=== PATIENT | female | born 1985 | race Caucasian/White ===

== ENCOUNTER 2025-03-28 14:42 | Emergency (ER) | payer MEDICAID, SELFPAY ==
--- OUTSIDE RECORDS SUMMARY | 2017-02-28 09:45 | XMS_ITS | Continuity of Care Document ---
[place] [facility] [place] [address] [place] [phone] Phone Care Team Providers Care Strategic Analyst Name Role Phone Darin Bailey MD Unavailable Unavailable Allergies, Adverse Reactions, Alerts Substance Reaction Status Criticality No Known Allergies Active No Inform ation Medications Medication Instructions Dosage Effective Dates (start - stop) Status Comments clindamycin 150 mg capsule take 2 capsule by oral route every 8 hours 300 MG - Active Rx'd by [facility] upon d/c on 02/15 -Pt should have completed course by time of appt on 02/28 Latasha-D 12 Hour 60 mg-120 mg tablet,extended release take 1 tablet by oral route as needed - Active Procedures Procedure Date Offic/outpt E&m [facility] TRANS CARE MGMT 14 DAY DISCH Advance Directives Directive Yes / No Effective Date File Name No Information Encounters Encounter Description Practice Location Reason(s) For Visit Diagnoses Date Provider Offic/outpt E&m [facility] [place], [address] [place] [address], [id number], [place] tel:[phone] [facility] hosp f/u (chief complaint)Eye problems (chief complaint) Cellulitis of other sites Lynn Webster. [address] [place] [address], [address], . tel:[phone] [facility], [address] [place] [address], [id number], tel:[phone] [facility] No Information No Information [address], [id number], [place] tel:[phone] [facility] Eye problems (FP) (chief complaint) Other conjunctivitis Luis Eduardo Nichole. [address] [place], [address], . tel:[phone] [phone], [id number], tel:[phone] [facility] Piedad Friend. [address] [place] [address], [id number], [place]. tel:[phone], [id number], [place] tel:[phone] [facility] Sore throat (chief complaint) Acute Pharyngitis No Information [address], [id number], [place] tel:[phone] [facility] Skin lesion (chief complaint) CELLULITIS OF BUTTOCKGENITAL HERPES NOS No Information [address], [id number], [place] tel:[phone] [facility] L arm pain (chief complaint) SPRAIN SHOULDER/ARM NOS No Information [address], [id number], [place] tel:[phone] [facility] cold symptoms (chief complaint) Influenza VaccineUPPER RESP DIS NEC/NOSOTALGIA NOSALLERGY, UNSPECIFIED No Information [address], [id number], [place] tel:[phone] [facility] physical examination (chief complaint) 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 [address] [place], [address], . tel:[phone] [address], [id number], tel:[phone] [facility] FPE (chief complaint)her pes (chief complaint) GENITAL HERPES NOS No Information [facility], [address] [place] [address], [id number], tel:[phone] [facility] Herpes (chief complaint) GENITAL HERPES NOS No Information [address], [id number], tel:[phone] Acute Care Pod establish care (chief complaint)thr oat (chief complaint) Acute Pharyngitis [place]co [place]. [address] [place], [address], . tel:[phone], [id number], tel:[phone] [facility] No Information No Information Family History Family Member Type Diagnosis Age At Onset Father Problem (finding) Quadraplegic Father Problem (finding) coronary arterioscleros is Mother Problem (finding) Alive and well Immunizations Vaccine Date Status Comments Flu (split) (3 yrs or older) administered Source: New Immunization Record Payers Payer name Insurance type Covered libertarian ID Authoriza tion(s) No Information Social History Type Description Quantity Date Captured Comments Alcohol Use Details Unknown Caffeine Use Details Unknown Tobacco Use Status Smoking Status No Information Sex Female Sexual Orientation Don't Know Gender Identity Female Vital Signs Date / Time: Height Weight BMI Pulse Rate Blood Pressure Temperature Respiratory Rate Body Surface Area Head Circumference Head Circ. Percentile Wt./Dylan. Percentile BMI percentile Pulse Ox Inhaled Ox 2:03 PM 65.00 in 66.678 kg (147.00 lbs) 24.4 6 kg/m eter (2) 64 /min 110/70 mm[Hg] 99.30 F 16 /min Chief Complaint And Reason For Visit From encounter dated '02/28/2017 13:45'. hosp f/u (chief complaint). Description: Jamilah Mcintyre : 1985Admission: 02/15/17 (<24h stay)Dx: Preseptal cellulitis of left eyeInterim Hx:Pt is a 31 year old w/no significant PMH who presented to [facility] ED w/3d hx of L eye swelling/pain. Pt was seen at [facility] for same issue earlier same day and was Rx'd cephalexin and polymyxin B sulfate/trimethoprim eye gtts but after 1st dose Pt took a nap and woke up w/increased pain. Upon arrival at [facility] ED Pt was hemodynamicallystable, w/o loss of visual acuity. Pt's CT orbit showed only preseptal involvementof inflammation -Pt was started on clindamycin and admitted for observation. Pt improved overnight and was d/c'd home w/plan to complete 10 day course of clindamycin 300 mg TID. Medications: Updated and reconciledImm's: need to be updatedFollow Up:-per Hospital Notes, Pt isw/o insurance and needs to re[facility] care[facility] Eye problems (chief complaint). Description: The symptoms are persistent. Symptoms located at left upper lid. Discomfort is described as itchy and feeling swollen . Patient reports no discharge. Context additional comments: recent hospitalization. Denies aggravating factors. Associated symptoms include itching. Pertinent negatives include blurred vision, eye pain or vision loss. A dditional information: Pt finished course of antibiotics for left preseptal cellulitis 2d ago, Pt having increased swelling. Plan Of Treatment Date Type Action Status Goal Influenza virus vaccine, quadrivalent, split virus, preservative free, when administered to individu. Due on due Goal Influenza virus vaccine,trivalent, split virus, for use in individuals 3 years of age and above,. Due on due Goal Annual PE. Due on 7 due Goal Chlamydia/GC Amp lification. Due on due Goal ThinPrep Pap w/ HPV. Due on due Goal Tetanus/diphth T ox-adult-im/je. Due on due Goal HIV-1 AG W/HIV-1 & HIV-2 AB. Due on due Goal Pap w/ HPV. Due on 17 due Goal ThinPrep Pap w/ HPV. Due on due Goal Influenza virus vaccine,trivalent, split virus, for use in individuals 3 years of age and above,. Due on due Goal Pap w/ HPV. Due on 17 due Goal Annual PE. Due on 7 due Goal Influenza virus vaccine, quadrivalent, split virus, preservative free, when administered to individu. Due on due Goal Chlamydia/GC Amp lification. Due on due Goal Tetanus/diphth T ox-adult-im/je. Due on due Goal HIV-1 AG W/HIV-1 & HIV-2 AB. Due on due Goal Influenza vaccine. Due on due Goal Td vaccine. Due on 14 due Goal H&P. Due on due Goal Tdap. Due on due Goal Breast exam. Due on 014 due Goal Tdap. Due on due Goal H&P. Due on due Goal Td vaccine. Due on 13 due Goal Breast exam. Due on 012 due Future Order: Lab Order Susan lord ([id number]), Sent on: Sent History Of Present Illness Encounter Date Complaint History Of Prese nt Illness hosp f/u Jamilah Mcintyre : 1985Admission: 02/15/17 (<24h stay)Dx: Preseptal cellulitis of left eyeInterim Hx:Pt is a 31 year old w/no significant PMH who presented to [facility] w/3d hx of L eye swelling/pain. Pt was seen at [facility] for same issue earlier same day and was Rx'd cephalexin and polymyxin B sulfate/trimethoprim eye gtts but after 1st dose Pt took a nap and woke up w/increased pain. Upon arrival at [facility] Pt was hemodynamically stable, w/o loss of visual acuity. Pt's CT orbit showed only preseptal involvement of inflammation -Pt was started on clindamycin and admitted for observation. Pt improved overnight and was d/c'd home w/plan to complete 10 day course of clindamycin 300 mg TID. Medications: Updated and reconciledImm's: need to be updatedFollow Up:-per Hospital Notes, Pt is w/o insurance and needs to [facility] Eye problems The symptoms are persistent. Symptoms located at left upper lid. Discomfort is described as itchy and feeling swollen . Patient reports no discharge. Context additional comments: recent hospitalization. Denies aggravating factors. Associated symptoms include itching. Pertinent negatives include blurred vision, eye pain or vision loss. Additional information: Pt finished course of antibiotics for left preseptal cellulitis 2d ago, Pt having increased swelling. Eye problems (FP) Onset: 2 Days. Symptoms located at left upper lid. Discomfort is described as dull pain. Symptoms are associated with contact lens use. Symptoms are not associated with exposure to pink eye, sick contact at home or sick contact at work. Symptoms are not aggravated by chemicals, eye motion or light. Symptoms are relieved by contact lens removal. Associated symptoms include left eye pain. Pertinent negatives include blurred vision, cough, ear pain, eye(s) crusted shut in AM, itching, nasal congestion, rhinorrhea, sore throat, tearing, vision loss or white discharge. Additional information: Since swelling started pt took out contacts and has been wearing her glasses. Sore throat Onset: 1 Week. T he severity of the problem is mild. The problem has not changed. The symptoms are persistent. The patient denies aggravating factors. The patient denies relieving factors. Associated symptoms include pharyngitis and swelling. Pertinent negatives include chills/rigors, cough, fever, nasal congestion or sinus pressure. Additional information: Pt states the discomfort is mild, but the swelling in the back of her throat is making it hard to breath. Instructions Date Instruction Additional Infor mation f/u as needed for re dness or swelling Related to Cellulitis of other sites Cephalexin 500 mg th ree times daily for 7 daysPolytrim ophthalmic drops can also be used three to 4 times daily for the left eye.Pt aware should not resume contact lens wear until she is back to normal without redness or pain. If not improving needs ophthalmology evaluation. Related to Other conjunctivitis Assessments Type Assessment Date assessment Cellulitis of other sites impression preseptal cellulitis improved ab x 10d finished Mental Status Date Cognitive Assessment Orientation - [place] ed to time, place, person, situation.
[2025-03-28 14:49] VITALS: BP 122/74; PULSE 78; RESP 16; TEMP 36.4; O2SAT 99; BMI 33.0
--- NOTE | 2025-03-28 14:52 | ED_ITS ---
HPI - General Adult General Chief complaint: Eye Problems Stated complaint: L eye irritation Time Seen by Provider: 03/28/25 14:52 Source: patient Mode of arrival: ambulatory Limitations: no limitations History of Present Illness ED Provider: Wade Elliott [facility] narrative: 39-year-old female with history of periorbital cellulitis presents to ED for left upper eyelid swelling and redness with slight tenderness since this morning. Patient denies any eye pain, change in vision, blurry vision, any recent trauma to the eye. Patient denies any headache, fever or chills. Patient denies sleeping with contacts. Related Data Previous Rx's ?Medication ?Instructions ?Recorded amoxicillin 875 mg-potassium 1 tab PO Q12H 10 days #20 tabs 03/28/25 clavulanate 125 mg tablet Allergies Allergy/AdvReac Type Severity Reaction Status Date / Time No Known Allergies Allergy Verified 03/28/25 14:51 Review of Systems 2 Review of Systems: left eye uppereyelid swelling Yes all other systems are reviewed and are [facility] Social History Social History Advance Directives: No Advance Directives Information Provided: No Do you have a plan to hurt others: No Plan Physical Exam ED Vital Signs: Vital Signs - 24 hr 03/28/25 14:49 03/28/25 15:29 Temperature 97.6 F 97.6 F Pulse Rate 78 78 Respiratory Rate 16 16 Blood Pressure 122/74 122/74 Pulse Oximetry 99 99 Oxygen Delivery Method Room Air Room Air BMI result Body Mass Index 33.0 Const General: cooperative, healthy appearing, comfortable, no acute distress, well developed, alert, awake and Physically active Orientation/consciousness: patient oriented x3 HENMT Head: Yes normal to inspection, Yes No palpable skull fracture present, Yes normocephalic and Yes atraumatic Ears: hearing grossly normal bilaterally, external ears normal, TM's normal bilaterally, TM normal on the right, TM normal on the left, EAC's normal, mastoids normal and no periauricular adenopathy Throat: Yes posterior oropharynx normal, Yes tonsils normal and Yes uvula midline Eyes General: appearance normal, both eyes and all related structures Eyes/upper lids images: 2 1. Positive for upper eyelid swelling with redness. Negative for any stye or chalazion. Negative for pus discharge or foul odor. Conjunctiva is normal. Negative for photophobia. Negative for signs of corneal abrasion, glaucoma, corneal ulcer, herpes zoster, or globe rupture. Negative hyphema Neck Neck: Yes normal visual inspection, Yes full ROM, Yes no lymphadenopathy, Yes no meningeal signs, Yes trachea midline, Yes supple, No anterior neck swelling and No tender Chest Chest palpation & inspection: normal inspection of the chest and normal palpation of entire chest wall Resp Effort & Inspection: normal respiratory effort and able to speak in complete sentences Auscultation: clear to auscultation bilaterally Cardio Jugular venous distension: no JVD Heart sounds: S1 normal heart sound present and S2 normal heart sound present GI Inspection: Yes normal to inspection Palpation (GI): Soft to palpation, not firm, nontender, no guarding and not rigid General: Yes no CVA tenderness Back/Spine/Pelvis Back: no CVA tenderness and No back tenderness Skin General skin exam: no rashes or lesions noted, elasticity normal and turgor normal Neuro General: patient oriented x3, gait normal, tone normal, moves all extremities, Normal light touch and pain sensation, no meningeal signs, no focal motor deficits, CN's II-XI intact bilaterally and normal sensation to monofilament Extrem General: Yes normal to inspection, Yes full ROM and Yes capillary refill normal Psych Appearance: grossly normal, well kempt and not disheveled Medical Decision Making Medical Decision Making MDM Narrative: 39-year-old female presents to ED for left eye irritation. Physical exam indicate periorbital cellulitis. Not suspecting corneal abrasion corneal ulcer, conjunctivitis, glaucoma, globe rupture, hyphema, iritis, or herpes zoster. Patient explained worrisome signs and informed to return to the ED immediately. Patient will be discharged with antibiotics. Visual acuity intact. Differential Diagnosis Differential Diagnoses: The differential diagnosis associated with the presentation includes (Conjunctivitis, periorbital cellulitis, stye, chalazion) Admission/Observation Consideration of admission/observation: Escalation of care including admission/observation considered Independent Historian Clinical information obtained from an independent historian. History obtained from or confirmed by: Other (Patient) Prescription Management I considered prescription management with: Antibiotic Discharge Plan Discharge Clinical Impression: Periorbital cellulitis Patient Disposition: Home, Self-Care Instructions: Periorbital Cellulitis (ED) Additional Instructions: Return to the ED immediately for any loss of vision, change in vision, increased swelling, pain, headache, dizziness, pus discharge, drainage, fever, chills, or any other concerning symptoms. Recommend follow up with PCP. Recommend warm compress on left eyelid 4 times a day for 15 minutes Prescriptions: New amoxicillin-pot clavulanate 875-125 mg tablet 1 tab PO Q12H 10 Days Qty: 20 0RF Referrals: Isa Rivera ANP [Primary Care Provider, Medical] - 1 day Referral Note: Left periorbital cellulitis Clinical Impression: Periorbital cellulitis Qasim Bowman [Physician, Ophthalmology] - 1 day Referral Note: Periorbital cellulitis Clinical Impression: Periorbital cellulitis Stand Alone Forms: Work/School Release Interventions: ED Discharge Assessment Last Done: 03/28/25 15:29 Discharge Date/Time: 03/28/25 15:30 Print Language: Yemeni
--- OUTSIDE RECORDS SUMMARY | 2025-03-28 15:14 | XMS_ITS | Data Portability ---
Author Organization [facility] [employer], [place] Address [address] [place] [address] Assessment Encounter Date Assessment Date Assessment LastModified by Organization Details LastModified Time 12/08/2021 12/08/2021 Lab Results > Last UDS Result (Qual Screen): NO illicit drugs > Last Confirmatory Test Result (LCMS/Quant): N/A due to Negative UDS > Last LFT Result on needs labs Since Last Visit THIS PT IS BEING TREATED FOR OUD WITH NALTREXONE AND IS SEEN WEEKLY. > Bio/psycho/social Update: Jamilah is here for AUD follow up for vivitrol injection. She established care for continuation of vivitrol inj. which was started in rehab on 11/27/21. She denies cravings. She has returned to AA meetings and is interested in attending the MAT friendly meeting starting [facility]. She has a good support system through AA and family/friends. She feels that the recovery program was very helpful for her and she is motivated to continue with recovery and return to work once her hip is better. This continues to be bothersome but is 85% better. She will try to continue exercise/yoga and is planning on going back to PT. she will request another referral from PCP at today's visit. She does not feel that pain has been a trigger for her ETOH use. She sees a counselor weekly and plans to continue this. Fluoxetine has been more helpful for depressions so far than citalopram. Assessment The patient's current phase of treatment is Induction phase, AUD. > 1) Interpretation of Confirmatory (LCMS) Test Result: N/A due to NEG UDS > 2) Markers of Recovery include: AA MEETINGS, COUNSELING, KEEPING APPTS. > 3) Counseling: Engaged in Counseling The patient does meet diagnostic criteria for alcohol dependence. The patient does continue to be a good candidate for this level of care. LFT will be repeated per our clinical protocol. Urine drug testing is ordered today with medical necessity as below. Naltrexone A/P Discussed the risk of using opioid and alcohol while on naltrexone. The patient is counseled re: short-term goal of harm reduction and the long-term goal of abstinence. Oral naltrexone challenge is not performed today. If chall enged, pt took own med with and after observed for minutes there evidence of precipitated withdrawal. The patient the oral naltrexone challenge. Plan The patient is advised to continue to abstain from alcohol and continue oral naltrexone AND return for Vivitrol injection. The patient is advised to engage in substance abuse counseling and provide verification each visit. Patient's visit frequency should be weekly. Frequency of UDS and confirmatory test, if applicable, should be weekly. Treatment plan review or change includes . Referrals made today include none. Prescription monitoring program is reviewed. If reviewed, I have identified agents prescribed to the patient in addition to any issued by our program; the patient is counseled regarding any risk of combining sedating agents. [email or web address] Not available 12/08/2021 15:03:03 12/17/2021 12/17/2021 This patient with a history of OUD presents today for their weekly MAT visit Current prescription is: Vivitrol 380mg Inj q 4 weeks Patient denies any S/E or cravings Update Since Last Visit : (narrative note) Jamilah is here for AUD follow up for vivitrol injection. She established care for continuation of vivitrol inj. which was started in rehab on 11/27/21. She denies cravings. She has returned to AA meetings and is interested in attending the MAT friendly meeting starting [facility]. She has a good support system through AA and family/friends. She feels that the recovery program was very helpful for her and she is motivated to continue with recovery and return to work once her hip is better. This continues to be bothersome but is 85% better. She will try to continue exercise/yoga and is planning on going back to PT. she will request another referral from PCP at today's visit. She does not feel that pain has been a trigger for her ETOH use. She sees a counselor weekly and plans to continue this. Fluoxetine has been more helpful for depressions so far than citalopram. However, she plans on discussing with PCP to see if this can be increased. She has very low energy and doesn't feel motivated at all. LAB RESULTS Last UDS result (qualitative screen): NEG EtOH, NEG all illicit substances Last confirmatory test result (LCMS/quantitative ): N/A due to negative UDS Last LFT result: Overdue for lab work--New lab req given ASSESSMENT The patient's current phase of OUD treatment is: Stabilization phase. Medication dose: No report of severe or persistent cravings. Pt will remain on current dose/medication PLAN (narrative, if applicable) Rx : Continue Vivitrol 380mg inj q 4 weeks Rx Quantity No Rx provided today. VISIT FREQUENCY Continue weekly visits and UDS. LAB ORDERS: Urine drug testing is ordered today with medical necessity as below. Confirmatory testing may be indicated for illicit substances. UNEXPECTED results on UDS (presumptive testing) may impact this patient's treatment plan. Therefore, the following tests require confirmation via LCMS: If POS for AMPHETAMINE : Perform Conf Testing If POS for BENZODIAZEPINES : Perform Conf Testing If POS for COCAINE : Perform Conf Testing If POS for METHADONE : Perform Conf Testing If POS for OPIATES (incl FENTANYL) : Perform Conf Testing If POS for OXYCODONE : Perform Conf Testing ADDITIONAL LAB(S) REQUESTED : If indicated, please perform the following: NONE LFTS will be repeated per our clinical protocol. Prescription monitoring program is reviewed. If applicable, I have identified agents prescribed to the patient in addition to any issued by our program. The patient has been counseled regarding any risk of combining sedating agents. [email or web address] Not available 12/17/2021 16:03:34 12/24/2021 12/24/2021 Lab Results > Last UDS Result (Qual Screen): POS for the following illicit drugs or EtOH: cocaine > Last Confirmatory Test Result (LCMS/Quant): N/A due to Negative UDS > Last LFT Result on waiting for labs to be sent from [facility] [place] Since Last Visit THIS PT IS BEING TREATED FOR OUD WITH VIVITROL AND IS SEEN WEEKLY. > Bio/psycho/social Update: Jamilah is here for AUD follow up and for her 2nd vivitrol injection. She established care for continuation of vivitrol inj. which was started in rehab on 11/27/21. She denies cravings. She has returned to AA meetings and is interested in attending the MAT friendly meeting starting [facility]. She has a good support system through AA and family/friends. She feels that the recovery program was very helpful for her and she is motivated to continue with recovery and return to work once her hip is better. This continues to be bothersome but is 85% better. She will try to continue exercise/yoga and is planning on going back to PT. she will request another referral from PCP at today's visit. She does not feel that pain has been a trigger for her ETOH use. Last UDS pos for cocaine. She admits to trying it before her last visit. She initially said that was the only time and she doesn't know why she did it. But then she admitted to also doing a small amount over the weekend. Discussed dangers of cocaine including cardiac arrest and the dangers of fentanyl which is commonly being mixed with cocaine. She says she does not plan on continuing this. She sees a counselor weekly and plans to continue. Fluoxetine has been more helpful for depressions so far than citalopram. However, she plans on discussing with PCP to see if this can be increased. She has very low energy and doesn't feel motivated at all. Assessment The patient's current phase of treatment is Stabilization phase, OUD. > 1) In terpretation of Confirmatory (LCMS) Test Result: N/A due to NEG UDS > 2) Markers of Recovery include: meetings, > 3) Counseling: Engaged in Counseling The patient does meet diagnostic criteria for alcohol dependence. The patient is responding to treatment with Vivitrol at OBOT level of care at this phase of treatment. The patient does continue to be a good candidate for this level of care. LFT will be repeated per our clinical protocol. Urine drug testing is ordered today with medical necessity as below. Vivitrol A/P Discussed the risk of using opioid and alcohol while on naltrexone. The patient is counseled re: short-term goal of harm reduction and the long-term goal of abstinence. The patient did receive injection today. > Vivitrol 380mg injection administered intramuscularly to left gluteal. > Lot # [id number], Exp. Date: 04/26/2024 > Diluent Lot #[id number], Exp. Date: 07/27/2024 Patient did tolerate injection well. If not tolerated: N/A. Next Vivitrol injection is due on 01/21/2022. Plan The patient is advised to continue to abstain from alcohol and continue current Vivitrol regimen. The patient is advised to engage in substance abuse counseling and provide verification each visit. Patient's visit frequency should be weekly. Frequency of UDS and confirmatory test, if applicable, should be weekly. Treatment plan review or change includes continue current level of care. Referrals made today include none. Prescription monitoring program is reviewed. If reviewed, I have identified agents prescribed to the patient in addition to any issued by our program; the patient is counseled regarding any risk of combining sedating agents. [email or web address] Not available 12/24/2021 13:23:25 12/31/2021 12/31/2021 This patient with a history of OUD presents today for their weekly MAT visit Current prescription is: Vivitrol 380mg Inj q 4 weeks Patient denies any S/E or cravings Update Since Last Visit : (narrative note) Jamilah is here for AUD follow up for vivitrol injection. She established care for continuation of vivitrol inj. which was started in rehab. She had her second vivitrol inj on 12/24/21. She called the office the other day for report of injection site redness, warmth, and firmness. She was instructed to use triple antibiotic cream and edd redness and go to ER if worsened/redness spread beyond marked areas. Today on inspection the area is without redness, warmth, swelling or drainage. Needle edd noted with a small area of firmness around site. She reports that it is much better. She denies cravings. She has returned to AA meetings and is interested in attending the MAT friendly meeting starting [facility]. She has a good support system through AA and family/friends. She feels that the recovery program was very helpful for her and she is motivated to continue with recovery and return to work once her hip is better. This continues to be bothersome but is 85% better. She will try to continue exercise/yoga and is planning on going back to PT. she will request another referral from PCP at today's visit. She does not feel that pain has been a trigger for her ETOH use. She did have one time this past week that she had a random craving but she was able to work through it. Will rx more naltrexone po to have on hand. She says she did not get her first RX She sees a counselor weekly and plans to continue this. Fluoxetine has been more helpful for depressions so far than citalopram. However, she plans on discussing with PCP to see if this can be increased. She has very low energy and doesn't feel motivated at all. She denies cocaine or other illicit substance use since last visit. LAB RESULTS Last UDS result (qualitative screen): POS for the following: COCAINE Last confirmatory test result (LCMS/quantitative ): N/A due to negative UDS Last LFT result: Overdue for lab work--New lab req given ASSESSMENT The patient's current phase of OUD treatment is: Stabilization phase. Medication dose: No report of severe or persistent cravings. Pt will remain on current dose/medication PLAN (narrative, if applicable) Rx : Continue Vivitrol 380mg inj q 4 weeks Rx Quantity No Rx provided today. VISIT FREQUENCY Continue weekly visits and UDS. LAB ORDERS: Urine drug testing is ordered today with medical necessity as below. Confirmatory testing may be indicated for illicit substances. UNEXPECTED results on UDS (presumptive testing) may impact this patient's treatment plan. Therefore, the following tests require confirmation via LCMS: If POS for AMPHETAMINE : Perform Conf Testing If POS for BENZODIAZEPINES : Perform Conf Testing If POS for COCAINE : Perform Conf Testing If POS for METHADONE : Perform Conf Testing If POS for OPIATES (incl FENTANYL) : Perform Conf Testing If POS for OXYCODONE : Perform Conf Testing ADDITIONAL LAB(S) REQUESTED : If indicated, please perform the following: NONE LFTS will be repeated per our clinical protocol. Prescription monitoring program is reviewed. If applicable, I have identified agents prescribed to the patient in addition to any issued by our program. The patient has been counseled regarding any risk of combining sedating agents. Not available 12/31/2021 11:41:11 01/07/2022 01/07/2022 This patient wit h a history of OUD presents today for their weekly MAT visit Current prescription is: Vivitrol 380mg Inj q 4 weeks Patient denies any S/E or cravings Update Since Last Visit : (narrative note) Patient Denies all illicit drug use since last visit Jamilah is here for AUD follow up for vivitrol injection. She established care for continuation of vivitrol inj. which was started in rehab. She had her second vivitrol inj on 12/24/21. She called the office to report of injection site redness, warmth, and firmness. She was instructed to use triple antibiotic cream and edd redness and go to ER if worsened/redness spread beyond marked areas. It was evaluated in office a few days later and was without redness, warmth, swelling or drainage. Needle edd noted with a small area of firmness around site. She reports that it is much better, just some itchiness at the site. She denies cravings. She has returned to AA meetings and is interested in attending the MAT friendly meeting starting [facility]. She has a good support system through AA and family/friends. She feels that the recovery program was very helpful for her and she is motivated to continue with recovery and return to work once her hip is better. This continues to be bothersome but is 85% better. She will try to continue exercise/yoga and is planning on going back to PT. she will request another referral from PCP at today's visit. She does not feel that pain has been a trigger for her ETOH use. She did have one time this past week that she had a random craving but she was able to work through it. Will rx more naltrexone po to have on hand. She says she did not get her first RX She sees a counselor weekly and plans to continue this. HAS BEEN GOING TO PT FOR RIGHT HIP - NO IMPROVEMENT. PCP WILL BE ORDERING MRI Fluoxetine has been more helpful for depressions so far than citalopram. However, she plans on discussing with PCP to see if this can be increased. She has very low energy and doesn't feel motivated at all. She denies cocaine or other illicit substance use since last visit. LAB RESULTS Last UDS result (qualitative screen): POS for the following: COCAINE, THC Last confirmatory test result (LCMS/quantitative ): Quantitative levels of: BENZOYLECGONINE Last LFT result: WNL ASSESSMENT The patient's current phase of OUD treatment is: Stabilization phase. Medication dose: No report of severe or persistent cravings. Pt will remain on current dose/medication PLAN (narrative, if applicable) Rx : Continue oral naltrexone 50mg daily Rx Quantity No Rx provided today. VISIT FREQUENCY Continue weekly visits and UDS. UNEXPECTED results on UDS may impact this patient's treatment plan. The following information will be used to place the proper confirmation orders for the specimen collected for this date 01/07/2022 . Perform Confirmation if Positive Amphetamines Perform Confirmation if Positive Benzodiazepines Perform Confirmation if Positive Cocaine Perform Confirmation if Positive Methadone Perform Confirmation if Positive Opiates and/or Fentanyl Perform Confirmation if Positive Oxycodone Additional requests in regards to confirmation orders. NONE LFTS will be repeated per our clinical protocol. Prescription monitoring program is reviewed. If applicable, I have identified agents prescribed to the patient in addition to any issued by our program. The patient has been counseled regarding any risk of combining sedating agents. [email or web address] Not available 01/21/2022 10:03:02 Plan of Treatment Reminders Order Date Submit Date Provider Last Modified By Organization Details Last Modified Time Details Appointments None recorded. Lab drug screen, urine 2021 022 [facility], [address] [place], [id number], 2 13:20:06 drug screen, urine 2021 022 [facility], [address] [place], [address], 2 12:32:35 test, urine 2021 022 [facility] [address], [address], 2 11:56:52 test, urine 2021 022 [facility] [address], [address], 2 11:37:40 drug screen, urine 2021 022 [facility], [address] [place], [address], 2 07:10:25 drug screen, urine [address], [address] [place], [address], 2 12:06:15 drug screen, urine 2021 [facility], [address] [place], [address], 11:11:20 drug screen, urine 2021 [facility], [address] [place], [address], 13:32:05 Referral None recorded. Procedures None recorded. Surgeries None recorded. Imaging None recorded. Medication [facility] mg tablet [id number] [address] [facility], [place], [address], 11:36:20 Patient TargetsNo targets recorded. Patient Instructions Encounter Date Encounter Id Patient Instructions Last Modified By Organization Details Last Modified Time 12/24/2021 [id number] Education provid ed at today's visit included: Review of patient's individualized treatment plan; Review of Specialty pharmacy procedures; Review of program policies: urine screening, medication, visit, counseling requirement; Discussed importance of avoiding opioid and alcohol while on Vivitrol Treatment; discussed Vivitrola??s common and serious side effects; Counseled regarding risk of if overdosed with alcohol or opioid while on Vivitrol treatment; Counseling re: trigger avoidance, relapse prevention and the importance of developing a sober network; Counseling re safe sex and control; Counseling re: Discovery & Drop-out prevention in early recovery. Greater than 50% of today's visit spent face to face counseling and coordinating care. [email or web address] Not available 12/24/2021 11:08:17 Reason for Referral None Reported. Results Created Date Observation Date Name Description Value Unit Range Abnormal Flag Note LastModifiedBy Organization Detail LastModifiedTime 12/02/1912/01/2021 [facility] amphetamines Negati ve NG/mL 1,000 Tru weiner by JUSTINO CASEY Not Available [place], [address], 12/02/2021 13:50:06 12/02/19 22 12/01/2021 INITI AL PT S[facility]N benzodiazapi kira Negati ve NG/mL 200 Not Available [facility] [place], [address], 12/02/2021 13:50:06 12/02/19 22 12/01/2021 INITI AL PT SCRN buprenorphin e Negati ve NG/mL 5 abnormal Not Available [place] [address] [place], [address], 12/02/2021 13:50:06 12/02/19 22 12/01/2021 INITI AL PT SCRN cocaine metabolite Negati ve NG/mL 150 Not Available [place] [address] [place], [address], 12/02/2021 13:50:06 12/02/19 22 12/01/2021 INITI AL PT S[facility]N opiates Negati ve NG/mL 300 Not Available [place] [address] [place], [address], 12/02/2021 13:50:06 12/02/19 22 12/01/2021 INITI AL PT SCRN oxycodone Negati ve NG/mL 300 Not Available [place] [address] [place], [address], 12/02/2021 13:50:06 12/02/19 22 12/01/2021 INITI AL PT SCRN fentanyl Negati ve NG/mL 2 Not Available [place] [address] [place], [address], 12/02/2021 13:50:06 12/02/19 22 12/01/2021 INITI AL PT SCRN ethyl alcohol Negati ve mg/dL 10 Not Available [place] [address] [place], [address], 12/02/2021 13:50:06 12/02/19 22 12/01/2021 INITI AL PT SCRN methadone metabolite Negati ve NG/mL 300 Not Available [facility] [place], [address], 12/02/2021 13:50:06 12/02/19 22 12/01/2021 INITI AL PT SCRN cannabinoids (THC) Negati ve NG/mL 50 Not Available [facility] [address] [place], [address], 12/02/2021 13:50:06 12/02/19 22 12/01/2021 INITI AL PT SCRN urine creatinine 127.5 mg/dL >20 Not Available [place] [address] [place], [address], 12/02/2021 13:50:06 12/02/19 22 12/01/2021 INITI AL PT SCRN urine pH 6.20 4.5-9. 0 Not Available [place] [address] [place], [address], 12/02/2021 13:50:06 12/02/19 22 12/01/2021 INITI AL PT SCRN specific gravity 1.019 1.003- 1.035 Not Available [place] [address] [place], [address], 12/02/2021 13:50:06 12/04/19 22 12/03/2021 pregn lian test, urine HCG negati ve Not Available [facility] [address] [place] [address], [phone], 11/30/2021 15:46:36 12/09/19 22 12/08/2021 NALTR EXONE PT SCREE RADU amphetamines Negati ve NG/mL 1,000 Tru weiner by JUSTNIO CASEY Not Available [place] [address] [address] [place], [address], 12/09/2021 13:32:05 12/09/19 22 12/08/2021 NALTR EXONE PT SCREE RADU benzodiazapi kira Negati ve NG/mL 200 Not Available [facility] [place], [address], 12/09/2021 13:32:05 12/09/19 22 12/08/2021 NALTR EXONE PT SCREE RADU cocaine metabolite Negati ve NG/mL 150 Not Available [facility] [place], [address], 12/09/2021 13:32:05 12/09/19 22 12/08/2021 NALTR EXONE PT SCREE RADU opiates Negati ve NG/mL 300 Not Available [facility] [place], [address], 12/09/2021 13:32:05 12/09/19 22 12/08/2021 NALTR EXONE PT SCREE RADU oxycodone Negati ve NG/mL 300 Not Available [facility] [place], [address], 12/09/2021 13:32:05 12/09/19 22 12/08/2021 NALTR EXONE PT SCREE RADU fentanyl Negati ve NG/mL 2 Not Available [facility] [place], [address], 12/09/2021 13:32:05 12/09/19 22 12/08/2021 NALTR EXONE PT SCREE RADU ethyl alcohol Negati ve mg/dL 10 Not Available [facility] [place], [address], 12/09/2021 13:32:05 12/09/19 22 12/08/2021 NALTR EXONE PT SCREE RADU methadone metabolite Negati ve NG/mL 300 Not Available [facility] [place], [address], 12/09/2021 13:32:05 12/09/19 22 12/08/2021 NALTR EXONE PT SCREE RADU cannabinoids (THC) Positi ve NG/mL 50 abnormal Not Available [facility] [place], [address], 12/09/2021 13:32:05 12/09/19 22 12/08/2021 NALTR EXONE PT SCREE RADU urine creatinine 186.3 mg/dL >20 Not Available [place] [address] [place], [address], 12/09/2021 13:32:05 12/09/19 22 12/08/2021 NALTR EXONE PT SCREE RADU urine pH 7.40 4.5-9. 0 Not Available [place] [address] [place], [address], 12/09/2021 13:32:05 12/09/19 22 12/08/2021 NALTR EXONE PT SCREE RADU specific gravity 1.024 1.003- 1.035 Not Available [place] [address] [place], [address], 12/09/2021 13:32:05 12/18/19 22 12/17/2021 BUPRE NORPH INE PT SCREE RADU amphetamines Negati ve NG/mL 1,000 Elect alena fletcher d by JUSTINO CASEY Not Available [place] [address] [place], [address], 12/18/2021 11:11:19 12/18/19 22 12/17/2021 BUPRE NORPH INE PT SCREE RADU benzodiazapi kira Negati ve NG/mL 200 Not Available [facility] [place], [address], 12/18/2021 11:11:19 12/18/19 22 12/17/2021 BUPRE NORPH INE PT SCREE RADU buprenorphin e Negati ve NG/mL 5 abnormal Not Available [facility] [place], [address], 12/18/2021 11:11:19 12/18/19 22 12/17/2021 BUPRE NORPH INE PT SCREE RADU cocaine metabolite Positi ve NG/mL 150 abnormal Not Available [facility] [place], [address], 12/18/2021 11:11:19 12/18/19 22 12/17/2021 BUPRE [facility] opiates Negati ve NG/mL 300 Not Available [facility] [place], [address], 12/18/2021 11:11:19 12/18/19 22 12/17/2021 [facility] oxycodone Negati ve NG/mL 300 Not Available [facility] [place], [address], 12/18/2021 11:11:19 12/18/19 22 12/17/2021 BUPRE [facility] fentanyl Negati ve NG/mL 2 Not Available [facility] [place], [address], 12/18/2021 11:11:19 12/18/19 22 12/17/2021 BUPRE [facility] ethyl alcohol Negati ve mg/dL 10 Not Available [facility] [place], [address], 12/18/2021 11:11:19 12/18/19 22 12/17/2021 BUPRE [facility] methadone metabolite Negati ve NG/mL 300 Not Available [facility] [place], [address], 12/18/2021 11:11:19 12/18/19 22 12/17/2021 BUPRE [facility] cannabinoids (THC) Positi ve NG/mL 50 abnormal Not Available [facility] [place], [address], 12/18/2021 11:11:19 12/18/19 22 12/17/2021 BUPRE [facility] urine creatinine 136.6 mg/dL >20 Not Available [place] [address] [place], [address], 12/18/2021 11:11:19 12/18/19 22 12/17/2021 BUPRE [facility] urine pH 7.20 4.5-9. 0 Not Available [place] [address] [place], [address], 12/18/2021 11:11:19 12/18/19 22 12/17/2021 BUPRE [facility] specific gravity 1.023 1.003- 1.035 Not Available [place] [address] [place], [address], 12/18/2021 11:11:19 12/18/19 22 12/17/2021 COCAI NE, QN, U benzoylecgon ine Negati ve NG/mL 100 Elect ronic ry fletcher d by JUSTINO ANNE MARIE CASEY Not Available [place] [address] [place], [address], 12/25/2021 08:30:12 12/18/19 22 12/17/2021 COCAI NE, QN, U legend Abbrev iation s OLR - Outsi de of linea r range Not Available [place] [address] [place], [address], 12/25/2021 08:30:12 12/18/19 22 12/17/2021 COCAI NE, QN, U billing only (g0480) Billin g Only Not Available [facility] 12 [place], [address], 12/25/2021 08:30:12 12/25/19 22 12/24/2021 [facility] amphetamines Negati ve NG/mL 1,000 Elect alena fletcher d by JUSTINO CASEY Not Available [place] [address] [place], [address], 12/28/2021 07:10:25 12/25/19 22 12/24/2021 [facility] benzodiazapi kira Negati ve NG/mL 200 Not Available [place] [address] [place], [address], 12/28/2021 07:10:25 12/25/19 22 12/24/2021 [facility] cocaine metabolite Positi ve NG/mL 150 abnormal Not Available [facility] [place], [address], 12/28/2021 07:10:25 12/25/19 22 12/24/2021 [facility] RADU opiates Negati ve NG/mL 300 Not Available [place] [address] [place], [address], 12/28/2021 07:10:25 12/25/19 22 12/24/2021 [facility] oxycodone Negati ve NG/mL 300 Not Available [place] [address] [place], [address], 12/28/2021 07:10:25 12/25/19 22 12/24/2021 [facility] fentanyl Negati ve NG/mL 2 Not Available [place] [address] [place], [address], 12/28/2021 07:10:25 12/25/19 22 12/24/2021 [facility] ethyl alcohol Negati ve mg/dL 10 Not Available [place] [address] [place], [address], 12/28/2021 07:10:25 12/25/19 22 12/24/2021 [facility] methadone metabolite Negati ve NG/mL 300 Not Available [facility] Jovita AltamiranoopeMECHELLE mallory, [address], 12/28/2021 07:10:25 12/25/19 22 12/24/2021 [facility] cannabinoids (THC) Positi ve NG/mL 50 abnormal Not Available [facility] Ishan Hernandez BarnumMECHELLE, [address], 12/28/2021 07:10:25 12/25/19 22 12/24/2021 [facility] urine creatinine 146.0 mg/dL >20 Not Available [place] [address] Gracieshawnee Hernandez MECHELLE Ospina, [address], 12/28/2021 07:10:25 12/25/19 22 12/24/2021 [facility] urine pH 6.00 4.5-9. 0 Not Available [place] [address] Ishan Hernandez MECHELLE Ospina, [address], 12/28/2021 07:10:25 12/25/19 22 12/24/2021 [facility] specific gravity 1.033 1.003- 1.035 Not Available [place] [address] Gracieshawnee Hernandez MECHELLE Ospina, [address], 12/28/2021 07:10:25 12/25/19 22 12/24/2021 COCAI NE, QN, U benzoylecgon ine 705.0 NG/mL 100 high Elect ronic ry justine d by JUSTINO CASEY Not Available [place] [address] [place], [address], 12/30/2021 11:07:04 12/25/19 22 12/24/2021 COCAI NE, QN, U legend Abbrev iation s OLR - Outsi de of linea r range Not Available [place] [address] [place], [address], 12/30/2021 11:07:04 12/25/19 22 12/24/2021 COCAI NE, QN, U billing only (g0480) Billdaron g Only Not Available [facility] [place], [address], 12/30/2021 11:07:04 12/25/19 22 12/24/2021 pregn lian test, urine HCG negati ve Not Available [facility] [address] [place] [address], [phone], 12/24/2021 11:08:18 01/01/20 22 12/31/2021 [facility] amphetamines Negati ve NG/mL 1,000 Tru fletcher d by JUSTINO ANNE MARIE CASEY Not Available [place] [address] [place], [address], 01/01/2022 12:32:35 01/01/20 22 12/31/2021 [facility] benzodiazapi kira Negati ve NG/mL 200 Not Available [facility] [place], [address], 01/01/2022 12:32:35 01/01/20 22 12/31/2021 [facility] cocaine metabolite Positi ve NG/mL 150 abnormal Not Available [facility] [place], [address], 01/01/2022 12:32:35 01/01/20 22 12/31/2021 [facility]AL[facility]U opiates Negati ve NG/mL 300 Not Available [place] [address] [place], [address], 01/01/2022 12:32:35 01/01/20 22 12/31/2021 [facility] oxycodone Negati ve NG/mL 300 Not Available [facility] Gracieshawnee Hernandez MECHELLE Ospina, [address], 01/01/2022 12:32:35 01/01/20 22 12/31/2021 [facility] fentanyl Negati ve NG/mL 2 Not Available [facility] Gracieshawnee Hernandez MECHELLE [place]sp[place], [address], 01/01/2022 12:32:35 01/01/20 22 12/31/2021 [facility] ethyl alcohol Negati ve mg/dL 10 Not Available [facility] [place], [address], 01/01/2022 12:32:35 01/01/20 22 12/31/2021 [facility] methadone metabolite Negati ve NG/mL 300 Not Available [facility] [place], [address], 01/01/2022 12:32:35 01/01/20 22 12/31/2021 [facility]AL[facility] EX[facility] RADU cannabinoids (THC) Positi ve NG/mL 50 abnormal Not Available [facility] [place], [address], 01/01/2022 12:32:35 01/01/20 22 12/31/2021 [facility] urine creatinine 248.8 mg/dL >20 Not Available [place] [address] [place], [address], 01/01/2022 12:32:35 01/01/20 22 12/31/2021 NALTR [facility] urine pH 5.90 4.5-9. 0 Not Available [place] [address] [place], [address], 01/01/2022 12:32:35 01/01/20 22 12/31/2021 NALTR EXONE [facility] RADU specific gravity 1.035 1.003- 1.035 Not Available [place] [address] [place], [address], 01/01/2022 12:32:35 01/01/20 22 12/31/2021 COCAI NE, QN, U benzoylecgon ine 344.6 NG/mL 100 high Elect ronic ally justine d by KEWADIN ANNE MARIE GARCIAG Not Available [place] [address] Bhavesh Altamirano MECHELLE, [address], 01/06/2022 09:03:50 01/01/20 22 12/31/2021 COCAI NE, QN, U legend Abbrev iation s OLR - Outsi de of linea r range Not Available [place] [address] Bhavesh Altamirano MECHELLE, [address], 01/06/2022 09:03:50 01/01/20 22 12/31/2021 COCAI NE, QN, U billing only (g0480) Billin g Only Not Available [facility] Bhavesh Altamirano M[place], [address], 01/06/2022 09:03:50 01/01/20 22 12/31/2021 pregn lian test, urine HCG negati ve Not Available [facility] [address] [place] [address], [phone], 12/31/2021 11:12:26 01/08/20 22 01/07/2022 NALTR [facility] amphetamines Negati ve NG/mL 1,000 Elect alena allkathya justine d by JUSTINO ANNE MARIE GARCIAG Not Available [place] [address] [place], [address], 01/08/2022 13:20:06 01/08/20 22 01/07/2022 NALTR EXONE [facility] RADU benzodiazapi kira Negati ve NG/mL 200 Not Available [facility] [place], [address], 01/08/2022 13:20:06 01/08/20 22 01/07/2022 NALTR EXONE [facility] RADU cocaine metabolite Negati ve NG/mL 150 Not Available [facility] [place], [address], 01/08/2022 13:20:06 01/08/20 22 01/07/2022 NALTR EXONE PT SCREE RADU opiates Negati ve NG/mL 300 Not Available [facility] [place], [address], 01/08/2022 13:20:06 01/08/20 22 01/07/2022 NALTR EXONE PT S[facility] RADU oxycodone Negati ve NG/mL 300 Not Available [facility] [place], [address], 01/08/2022 13:20:06 01/08/20 22 01/07/2022 NALTR EXONE PT SCR[facility] RADU fentanyl Negati ve NG/mL 2 Not Available [facility] [place], [address], 01/08/2022 13:20:06 01/08/20 22 01/07/2022 NALTR EXONE PT SCR[facility] RADU ethyl alcohol Negati ve mg/dL 10 Not Available [facility] [place], [address], 01/08/2022 13:20:06 01/08/20 22 01/07/2022 NALTR EXONE PT S[facility] RADU methadone metabolite Negati ve NG/mL 300 Not Available [facility] [place], [address], 01/08/2022 13:20:06 01/08/20 22 01/07/2022 NALTR EXONE PT S[facility] RADU cannabinoids (THC) Positi ve NG/mL 50 abnormal Not Available [facility] [place], [address], 01/08/2022 13:20:06 01/08/20 22 01/07/2022 NALTR EXONE PT SCR[facility] RADU urine creatinine 181.1 mg/dL >20 Not Available [place] [address] [place], [address], 01/08/2022 13:20:06 01/08/20 22 01/07/2022 NALTR EXONE PT SCREE RADU urine pH 5.90 4.5-9. 0 Not Available [place] [address] [place], [address], 01/08/2022 13:20:06 01/08/20 22 01/07/2022 NALTR EXONE PT SCR[facility] RADU specific gravity 1.027 1.003- 1.035 Not Available [place] [address] [place], [address], 01/08/2022 13:20:06 Result Notes None recorded. Problems Name Problem SNOMED Code Status Onset Date Resolution Date Notes Provider Name and Address Organization Details Recorded Time Opioid dependence 86746932 Active 022 Solange Grimes NP [address] [place] [address], [phone], [facility] 16:03:48 Problem Notes None recorded. Procedures Surgical History Date Name Laterality Status Provider Name and Address Organization Details Recorded Time 01/21/2022 85156, G0480, G0481 cancelled Solange Grimes NP [address] [place] [address], [phone], [facility] 01/21/2022 09:46:40 01/07/2022 15425, G0480, G0481 completed Debora Sweeney [facility] 01/07/2022 12:55:15 12/31/2021 56463, G0480, G0481 completed Solange Grimes NP [address] [place] [address], [address], [facility] 12/31/2021 11:00:37 12/24/2021 27264, G0480, G0481 completed Solange Grimes NP [address] [place], [address], [facility] 12/24/2021 11:08:17 12/17/2021 40062, G0480, G0481 completed Natasha Contreras [facility] 12/17/2021 10:52:12 12/08/2021 71085, G0480, G0481 completed Awilda Yuen [facility] 12/08/2021 08:24:07 12/01/2021 76311, G0480, G0481 completed Luciana Cervantesd [facility] 11/30/2021 15:46:34 Imaging Results None recorded. Procedure Notes None recorded. Medical Equipment None Reported. Allergies No known drug allergies Medications Name Sig Start Date Stop Date Status Note LastModified by Organization Details LastModified Time methocarbamol 500 mg tablet active Not Available Not Availabl e Not Available trazodone 50 mg tablet active Not Available Not Available No t Available citalopram 10 mg tablet 12/01 completed Not Available Not Available Not Available naltrexone 50 mg tablet Take 1 tablet every day by oral route as needed for 7 days. active Not Available Not Available No t Available metronidazole 0.75 % (37.5 mg/5 gram) vaginal gel 12/01 completed Not Available Not Available Not Available fluoxetine 10 mg capsule active Not Available Not Available N ot Available hydroxyzine HCl 25 mg tablet active Not Available Not Available Not Available fluoxetine 20 mg capsule active Not Available Not Available N ot Available Vivitrol 380 mg intramuscular suspension,ex tended release IM q 4 weeks active Not Available Not Available No t Available Norlyda 0.35 mg tablet active Not Available Not Available No t Available Lidocaine Pain Relief 4 % topical patch active Not Available Not Available Not Available Vitals Date Recorded Body height Body temperature Heart rate Oxygen saturation Oxygen saturation in Arterial blood by Pulse oximetry Provider Name and Address Organization Details Last Updated DateTime 2 162.56 cm 100 [degF] 76 /min 98 % 98 % Awilda Yuen [facility] 08:24:48 Date Recorded Body height Oxygen saturation Oxygen saturation in Arterial blood by Pulse oximetry Heart rate Body temperature Respiratory rate Provider Name and Address Organization Details Last Updated DateTime 2 162.56 cm 99 % 99 % 63 /min 96.8 [degF] 14 /min Natasha Contreras [facility] 2 10:53:54 Date Recorded Body height Body temperature Oxygen saturation Oxygen saturation in Arterial blood by Pulse oximetry Heart rate Provider Name and Address Organization Details Last Updated DateTime 2 162.56 cm 97.5 [degF] 98 % 98 % 65 /min Luciana Mcadams [facility] 2 11:10:01 Date Recorded Body height Body temperature Heart rate Oxygen saturation Oxygen saturation in Arterial blood by Pulse oximetry Provider Name and Address Organization Details Last Updated DateTime 2 162.56 cm 98.1 [degF] 84 /min 95 % 95 % [facility] 2 11:10:06 Date Recorded Body height Body temperature Heart rate Oxygen saturation Oxygen saturation in Arterial blood by Pulse oximetry Provider Name and Address Organization Details Last Updated DateTime 2 162.56 cm 97.7 [degF] 77 /min 98 % 98 % [facility] 2 12:56:31 Social History None recorded. Functional Status None recorded. Mental Status None recorded. Family History Nothing Reported. Medical History No medical history recorded. Gynecological HistoryNo gynecological history recorded. Obstetrics History GPAL:G 0 P 0 0 0 0 Past Encounters Encounter ID Performer Location Encounter Start Date Encounter Closed Date Diagnosis/Indication Diagnosis SNOMED-CT Code Diagnosis ICD10 Code Diagnosis Note [id number] Rommel Esteves, DO [facility] [address] [place] [address] [place] [address] 12/01/2021 08:19:54 12/01/2021 11:09:13 Alcohol dependence 50479121 F10.20 UNSTABLE [id number] MD Lexx [facility] [address] [place] [address] [place] [address] 12/08/2021 08:20:55 12/08/2021 16:14:50 Alcohol dependence 71219942 F10.20 UNSTABLE [id number] MD Lexx [facility] [address] [place] [address] [place] [address] 12/17/2021 10:48:01 12/17/2021 11:17:28 Opioid dependence 21495739 F11.20 no history of opioid dependence Alcohol dependence 48625 003 F10.20 UNSTABLE [id number] Mimi Vogt MD [facility] [address] [facility] [place] [address] 12/24/2021 11:06:10 12/25/2021 18:50:03 Alcohol dependence 44128790 F10.20 UNSTABLE [id number] Mimi Vogt MD [facility] [address] [facility] [place] [address] 12/31/2021 11:04:51 12/31/2021 11:38:19 Alcohol dependence 54012334 F10.20 UNSTABLE [id number] Solange Grimes NP [facility] [address] [facility] [place] [address] 01/07/2022 12:53:26 01/07/2022 13:38:03 Alcohol dependence 25814692 F10.20 UNSTABLE Health Concerns Section Related Observation LastModified by Organization Detai ls LastModified Time None Recorded Concern Status LastModified by Organization Details LastModified Time None Recorded Advance Directives Directive None Recorded Payers Insurance Date Sequence Insurance Name Policy Number Policy Segovia Covered Member ID Segovia Member ID Guarantor Name 01/19/2022 1 [facility] [employer] - TOGETHER (MEDICAID HMO) [id number] Jamilah Mcintyre [id number] Jamilah Mcintyre Notes Date Note Type Note Provider Name and Address Organization Details Recorded Time 12/08/2021 text/html PLEASE SEE A & P SECTION FOR FULL VISIT NOTE This patient is here today for their follow-up MAT visit. They are being treated forAUDwithVivitrol Inj PLEASE SEE A & P SECTION FOR FULL VISIT NOTE Solange Grimes NP [address] [place] [address], [phone], [facility] [employer] 12/08/2021 15:03:46 12/17/2021 text/html This patient is here today for their follow-up MAT visit. They are being treated for OUD with buprenorphine. PLEASE SEE A & P SECTION FOR FULL VISIT NOTE This patient is here today for their follow-up MAT visit. They are being treated forOUDwithVivitrol Inj PLEASE SEE A & P SECTION FOR FULL VISIT NOTE Solange Grimes NP [address] [place] [address], [phone], [facility] [employer] [facility] 12/17/2021 16:11:52 12/24/2021 text/html The patient is h ere for Vivitrol injection visit. The patient reports doing better since last visit and denies slip or relapse. MAT HPI They deny cravings for alcohol and deny alcohol use since their last visit. They deny cravings for other substances and deny other substance use since their last visit. Triggers are not identified and any alleviating factors to identified triggers are discussed. Withdrawal symptoms are present. MAT Vivitrol Administration and Program Adherence The patient denies problems at the last injection site. The patient denies side effects from the medication. There are other support systems in place for this patient. Solange Grimes NP [address] [place] [address], [phone], [facility] [employer] [facility] 12/24/2021 13:23:37 12/31/2021 text/html This patient is here today for their follow-up MAT visit. They are being treated for OUD with buprenorphine. PLEASE SEE A & P SECTION FOR FULL VISIT NOTE This patient is here today for their follow-up MAT visit. They are being treated for AUD with Vivitrol Inj PLEASE SEE A & P SECTION FOR FULL VISIT NOTE Solange Grimes NP [address] [place] [address], [phone], [facility] [employer] [facility] 01/21/2022 10:01:47 01/07/2022 text/html This patient is here today for their follow-up MAT visit. They are being treated for AUD with Vivitrol Inj PLEASE SEE A & P SECTION FOR FULL VISIT NOTE Solange Grimes NP [address] [place] [address], [phone], [facility] [employer] [facility] 01/21/2022 10:03:10 OBGyn Episode No OBEpisode recorded.
[2025-03-28 15:29] VITALS: BP 122/74; PULSE 78; RESP 16; TEMP 36.4; O2SAT 99
== END 2025-03-28 15:30 | disposition home or self-care (01) ==
PROVIDERS: Emergency Provider Emergency Medicine; PCP Nurse Practitioner Adult Health
DX: L03.213 Periorbital cellulitis (principal)
CPT/HCPCS: 99282; 99283

== ENCOUNTER 2025-03-29 17:41 | Emergency (ER) | payer MEDICAID, SELFPAY ==
[2025-03-29 17:49] VITALS: BP 110/74; PULSE 81; RESP 18; TEMP 37; O2SAT 99; BMI 30.8
--- NOTE | 2025-03-29 17:49 | ED.EYEPROB ---
HPI - Eye Problem General Chief complaint: Eye Problems Stated complaint: here 03/28 eye swollen given antibiotics worsen Time Seen by Provider: 03/29/25 18:00 Source: patient and RN notes reviewed Mode of arrival: ambulatory Limitations: no limitations History of Present Illness ED Provider: Natasha Adame PA-C [facility] Narrative: This is a 39 year old female who presents to the ER with a complaint of left upper eyelid swelling and redness. Patient was seen here yesterday and was diagnosed with periorbital cellulitis and was discharged with Augmentin. She states that she has had 3 doses of the Augmentin however she states that her eye lid is becoming more swollen and red. She denies any fevers or chills. No vision changes. No eye pain. She has not been using any hot compresses to the eye. Patient denies any injury or trauma to the eye. No other complaints or concerns at this time. MD chief complaint: other (Eyelid swelling) Onset (ago): day(s) Onset description: gradual Duration: constant and progressively worsening Location: left eye Mechanism: none Severity: moderate Associated symptoms: none Related Data Previous Rx's ?Medication ?Instructions ?Recorded amoxicillin 875 mg-potassium 1 tab PO Q12H 10 days #20 tabs 03/28/25 clavulanate 125 mg tablet erythromycin 5 mg/gram (0.5 %) eye 0.5 inch ophthalmic (eye) QID 7 03/29/25 ointment days #3.5 grams Allergies Allergy/AdvReac Type Severity Reaction Status Date / Time No Known Allergies Allergy Verified 03/29/25 17:49 Review of Systems Review of Systems: Yes all other systems are reviewed and are negative Constitutional: Constitutional: Reports as per [facility] Social History Social History Advance Directives: No Advance Directives Information Provided: No Physical Exam Vital Signs: Vital Signs: Last Vital Signs Temp 98.6 F 03/29/25 18:06 Pulse 81 03/29/25 18:06 Resp 18 03/29/25 18:06 BP 110/74 03/29/25 18:06 Pulse Ox 99 03/29/25 18:06 O2 Del Method Room Air 03/29/25 18:06 BMI result Body Mass Index 30.8 Const: General: cooperative, comfortable and no acute distress Orientation/consciousness: patient oriented x3 Limitations: no limitations HEENT: Head: Yes normal to inspection, Yes normocephalic and Yes atraumatic Ears: hearing grossly normal bilaterally General nose exam: Normal external nose present Face and sinus: Yes normal facial exam Mouth: Normal oral and palatal mucosa present, oropharynx normal and moist mucous membranes Throat: Yes posterior oropharynx normal Eyes: Other: Left upper eyelid is edematous and erythematous, pustule noted on the eyelash line, full ROM of the left eye without difficulty or pain. Pupils are equal and reactive. Conjunctiva is noninjected. Conjunctivae: conjunctivae normal Sclerae: sclerae normal Pupils: Equal, round and reactive pupils present EOM: EOMs intact bilaterally Neck: Neck: Yes normal visual inspection, Yes full ROM and Yes no lymphadenopathy Lymphatic: no lymphadenopathy noted Chest: Chest palpation & inspection: normal inspection of the chest Resp: Effort & Inspection: normal respiratory effort and able to speak in complete sentences Cardio: Rate: regular rate Rhythm: regular rhythm GI: Inspection: Yes normal to inspection Skin: General skin exam: no rashes or lesions noted Trauma: no lacerations or abrasions Wounds: no wounds Neuro: General: patient oriented x3 and moves all extremities Cranial nerves: Yes Equal, round and reactive pupils present Extrem: General: Yes normal to inspection Right upper extremity: normal to inspection Left upper extremity: normal to inspection Right lower extremity: normal to inspection Left lower extremity: normal to inspection Course Course Course Narrative: This is an RME: Additional HPI, ROS, PE not included below will be deferred to primary provider. RME assessment and note performed by: Natasha Adame PA-C This is a [id number]-female who presents to the ER with complaints of left upper eyelid swelling. Plan: Medications Administered Discontinued Medications Generic Name Dose Route Start Last Admin Trade Name Freq PRN Reason Stop Dose Admin Erythromycin 1 cm 03/29/25 17:56 03/29/25 17:59 Erythromycin Base 0.5% Oph Oin 1 Gm Tube EYE-LEFT 03/29/25 17:57 1 cm ONCE ONE Administration Medical Decision Making Medical Decision Making [facility] Narrative: This is a a 39-year-old female who presents emergency department with complaints of left upper eyelid redness and swelling. She was started on Augmentin yesterday after being diagnosed with periorbital cellulitis. She states that the swelling has increased. She has not been using warm compresses. Vital signs within normal ranges on arrival. Discussed with patient that she likely needs to continue taking the prescribed antibiotic. Stye is noted along her lid margin. She has no pain with extraocular movements. Stressed the importance of applying warm compresses to the eye. Given strict return precautions. We will also discharged on erythromycin ointment. Patient stable for discharge. Differential Diagnosis Differential Diagnoses: The differential diagnosis associated with the presentation includes Periorbital cellulitis, hordeolum, orbital cellulitis, conjunctivitis Discharge Plan Discharge Clinical Impression: Periorbital cellulitis, Hordeolum Patient Disposition: Home, Self-Care Instructions: Stye (ED), Periorbital Cellulitis (ED) Additional Instructions: You were seen in the ER due to increased eyelid swelling. Please continue taking prescribed antibiotic as directed. I believe that the antibiotic you are on is the appropriate treatment at this time and you need a few more doses of the antibiotic to help. Please apply warm compresses 5-6 times per day. You have a stye developing in this eye. Use erythromycin ointment as prescribed. Return to the ED immediately for any loss of vision, change in vision, increased swelling, pain, headache, dizziness, pus discharge, drainage, fever, chills, or any other concerning symptoms. Prescriptions: New erythromycin 5 mg/gram (0.5 %) ointment 0.5 inch ophthalmic (eye) QID 7 Days Qty: 3.5 0RF No Action amoxicillin-pot clavulanate 875-125 mg tablet 1 tab PO Q12H 10 Days Qty: 20 0RF Interventions: ED Discharge Assessment Last Done: 03/29/25 18:06 Discharge Date/Time: 03/29/25 18:07 Print Language: [place] Citizen
[2025-03-29] MEDS: Erythromycin Base 0.5% Oph Oin 1 GM TUBE 1 CM EYE-LEFT (17:59)
[2025-03-29 18:06] VITALS: BP 110/74; PULSE 81; RESP 18; TEMP 37; O2SAT 99
== END 2025-03-29 18:07 | disposition home or self-care (01) ==
PROVIDERS: Emergency Provider Internal Medicine; PCP Nurse Practitioner Adult Health
DX: L03.213 Periorbital cellulitis (principal); H00.014 Hordeolum externum left upper eyelid
CPT/HCPCS: 99282; 99283